=== PATIENT | male | born 1990 | race Caucasian/White ===

== ENCOUNTER 2020-12-09 00:28 | Emergency (ER) | payer SELFPAY ==
--- NOTE | 2020-12-09 00:30 | EDM.PDOC ---
ED HPI GENERAL MEDICAL PROBLEM - General Stated Complaint: HEADACHE AND SWOLLEN LEGS Time Seen by Provider: 12/09/20 00:29 - History of Present Illness INITIAL COMMENTS - FREE TEXT/NARRATIVE: History of present illness: [] Review of systems: As per history of present illness and below otherwise all systems reviewed and negative. Past medical history: As per history of present illness and as reviewed below otherwise noncontributory. Patient has a headache for 3 days it is getting worse tonight and its unbearable when he stands up and moves around. The patient also has swelling of his legs which is started at the foot and ankle with pain in the foot and ankle and gradually coming up to the thigh. The patient also has a rash that is not pruritic and is red maculopapular and over the pretibial surface but now over the trunk and also on the forearms and arms. The patient does not think he is febrile. He does not have a cough. He says if he does cough it hurts his head. 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 He does not think he is exposed to COVID-19. He lives in [place] with a but he is here staying in a hotel while he works on his home. The onset of the symptoms he has decreased urine output and has a little bit of burning when he tries. And is extremely dark. Surgical history: As per history of present illness and as reviewed below otherwise noncontribut ory. Social history: No reported history of drug or alcohol abuse. Family history: As per history of present illness and as reviewed below otherwise noncontributory. Physical exam: Constitutional - well developed, well-nourished and in no acute distress HEENT -neck supple. Brudzinski sign negative. Tender neck muscles in the posterior neck. Normocephalic, no evidence of trauma - external nose and mouth normal - no mass in neck and no JVD - mucosae moist EYES - full EOM, PERRL, no icterus - no evidence of inflammation, injection, or drainage Respiratory - no respiratory distress, equal bilateral expansion, lungs clear to auscultation and no abnormal lung sounds Cardiovascular - Regular Rhythm with S1 and S2 appreciated and no murmur, gallop or rub. GI - abdomen soft without distension or organomegaly - normal bowel sounds - no guard or rebound Musculoskeletal tender anterior anterior pretibial surfaces of his legs with no pitting edema. No gross deformity of long bones or joints - no tenderness, swelling or edema Neurologic - Alert and oriented times four - CN II-XII grossly intact - motor sensory and coordination symmetrically normal Psychiatric - appropriate mood and affect with normal thought content Hematologic - No petechiae or purpura - mucosa appropriate color and sclera not pale - normal nail bed color and refill Integument -Virgilio rash consisting of large macules several millimeters at times confluent over the upper extremities lower extremities and trunk. No pustules and no petechiae. No evidence of trauma - normal turgor Diagnostics: [] Therapeutics: [] Impression: [] Plan: [] Definitive disposition and diagnosis as appropriate pending reevaluation and review of above. Head Pain Score (Numeric/FACES): 5 - Related Data Allergies Allergy/AdvReac Type Severity Reaction Status Date / Time No Known Allergies Allergy Verified 12/09/20 00:32 Home Meds: Home Meds predniSONE [Prednisone] 60 mg PO DAILY 6 Days #18 tablet 12/09/20 [Rx] ED ROS GENERAL - Review of Systems Review Of Systems: Comprehensive ROS is negative, except as noted in HPI. ED EXAM, GENERAL - Physical Exam Exam: See Below Free Text/Narrative:: My physical exam is in the HPI. #1 Interpretation EKG Interpretation Comments: EKG taken at 00 30 hours sinus tachycardia with a heart rate of 100. CT 135 and QT 439. QRS axis 45. Normal QRS. Normal ST and T. No prior for comparison. Impression normal EKG Course - Vital Signs Text/Narrative:: 01 10 the patient has not improved much. Plan treat as possible allergy. Follow-up with primary care. Since he is in a hotel he needs to inspect his sheets carefully make sure that there is no bed bugs or nits. Last Recorded V/S: Last Vital Signs Temp 37.0 C 12/09/20 00:32 Pulse 95 12/09/20 01:40 Resp 17 12/09/20 01:40 BP 144/81 H 12/09/20 01:40 Pulse Ox 100 12/09/20 01:40 - Orders/Labs/Meds Orders: Active Orders 24 hr Category Date Time Status Sodium Chloride 0.9% [Normal Saline] 1,000 ml Med 12/09/20 02:05 Active IV .Bolus Sodium Chloride 0.9% [Saline Flush] Med 12/09/20 00:41 Active 10 ml FLUSH ASDIRECTED PRN Sodium Chloride 0.9% [Saline Flush] Med 12/09/20 00:41 Active 2.5 ml FLUSH ASDIRECTED PRN Saline Lock Insert [OM.PC] Stat Oth 12/09/20 00:41 Ordered Medication Orders Sodium Chloride (Normal Saline) 1,000 mls @ 999 mls/hr IV .Bolus ONE Stop: 12/09/20 03:05 Last Admin: 12/09/20 02:06 Dose: 999 mls/hr Documented by: JESUS Sodium Chloride (Saline Flush) 10 ml FLUSH ASDIRECTED PRN PRN Reason: Keep Vein Open Last Admin: 12/09/20 00:48 Dose: 10 ml Documented by: JESUS Sodium Chloride (Saline Flush) 2.5 ml FLUSH ASDIRECTED PRN PRN Reason: Keep Vein Open Last Admin: 12/09/20 00:48 Dose: 2.5 ml Documented by: JESUS Labs: Laboratory Tests 12/09/20 12/09/20 12/09/20 Range/Units 00:40 00:40 01:10 WBC 8.48 (4.0-11.0) K/uL RBC 4.96 (4.50-5.90) M/uL Hgb 14.2 (13.0-17.0) g/dL Hct 40.8 (38.0-50.0) % MCV 82.3 (80.0-98.0) fL MCH 28.6 (27.0-32.0) pg MCHC 34.8 (31.0-37.0) g/dL RDW Std Deviation 38.1 (28.0-62.0) fl RDW Coeff of Keisha 13 (11.0-15.0) % Plt Count 203 (150-400) K/uL MPV 9.50 (7.40-12.00) fL Neut % (Auto) 69.4 (48.0-80.0) % Lymph % (Auto) 17.3 (16.0-40.0) % Day % (Auto) 12.4 (0.0-15.0) % Eos % (Auto) 0.8 (0.0-7.0) % Baso % (Auto) 0.1 (0.0-1.5) % Neut # (Auto) 5.9 H (1.4-5.7) K/uL Lymph # (Auto) 1.5 (0.6-2.4) K/uL Day # (Auto) 1.1 H (0.0-0.8) K/uL Eos # (Auto) 0.1 (0.0-0.7) K/uL Baso # (Auto) 0.0 (0.0-0.1) K/uL Sodium 137 (136-148) mmol/L Potassium 4.6 (3.5-5.1) mmol/L Chloride 102 (98-107) mmol/L Carbon Dioxide 28.8 (21.0-32.0) mmol/L BUN 13 (7.0-18.0) mg/dL Creatinine 0.9 (0.8-1.3) mg/dL Est Cr Clr Drug Dosing 165.93 mL/min Estimated GFR (MDRD) > 60.0 ml/min Glucose 116 H (74-106) mg/dL Calcium 9.1 (8.5-10.1) mg/dL Total Bilirubin 0.5 (0.2-1.0) mg/dL AST 26 (15-37) IU/L ALT 22 (14-63) IU/L Alkaline Phosphatase 97 (46-116) U/L Total Protein 7.1 (6.4-8.2) g/dL Albumin 3.5 (3.4-5.0) g/dL Globulin 3.6 (2.6-4.0) g/dL Albumin/Globulin Ratio 1.0 (0.9-1.6) Urine Color Urine Appearance Urine pH (5.0-8.0) Ur Specific [place] (1.001-1.035) Urine Protein (NEGATIVE) mg/dL Urine Glucose (UA) (NEGATIVE) mg/dL Urine Ketones (NEGATIVE) mg/dL Urine Occult Blood (NEGATIVE) Urine Nitrite (NEGATIVE) Urine Bilirubin (NEGATIVE) Urine Urobilinogen (<2.0) EU/dL Ur Leukocyte Esterase (NEGATIVE) Influenza Type A RNA NEGATIVE (NEGATIVE) Influenza Type B RNA NEGATIVE (NEGATIVE) SARS-CoV-2 RNA (GENE) NEGATIVE (NEGATIVE) 01/20/21 Range/Units 02:10 WBC (4.0-11.0) K/uL RBC (4.50-5.90) M/uL Hgb (13.0-17.0) g/dL Hct (38.0-50.0) % MCV (80.0-98.0) fL MCH (27.0-32.0) pg MCHC (31.0-37.0) g/dL RDW Std Deviation (28.0-62.0) fl RDW Coeff of Keisha (11.0-15.0) % Plt Count (150-400) K/uL MPV (7.40-12.00) fL Neut % (Auto) (48.0-80.0) % Lymph % (Auto) (16.0-40.0) % Day % (Auto) (0.0-15.0) % Eos % (Auto) (0.0-7.0) % Baso % (Auto) (0.0-1.5) % Neut # (Auto) (1.4-5.7) K/uL Lymph # (Auto) (0.6-2.4) K/uL Day # (Auto) (0.0-0.8) K/uL Eos # (Auto) (0.0-0.7) K/uL Baso # (Auto) (0.0-0.1) K/uL Sodium (136-148) mmol/L Potassium (3.5-5.1) mmol/L Chloride (98-107) mmol/L Carbon Dioxide (21.0-32.0) mmol/L BUN (7.0-18.0) mg/dL Creatinine (0.8-1.3) mg/dL Est Cr Clr Drug Dosing mL/min Estimated GFR (MDRD) ml/min Glucose (74-106) mg/dL Calcium (8.5-10.1) mg/dL Total Bilirubin (0.2-1.0) mg/dL AST (15-37) IU/L ALT (14-63) IU/L Alkaline Phosphatase (46-116) U/L Total Protein (6.4-8.2) g/dL Albumin (3.4-5.0) g/dL Globulin (2.6-4.0) g/dL Albumin/Globulin Ratio (0.9-1.6) Urine Color YELLOW Urine Appearance CLEAR Urine pH 8.0 (5.0-8.0) Ur Specific [place] 1.020 (1.001-1.035) Urine Protein NEGATIVE (NEGATIVE) mg/dL Urine Glucose (UA) NEGATIVE (NEGATIVE) mg/dL Urine Ketones NEGATIVE (NEGATIVE) mg/dL Urine Occult Blood NEGATIVE (NEGATIVE) Urine Nitrite NEGATIVE (NEGATIVE) Urine Bilirubin NEGATIVE (NEGATIVE) Urine Urobilinogen 0.2 (<2.0) EU/dL Ur Leukocyte Esterase NEGATIVE (NEGATIVE) Influenza Type A RNA (NEGATIVE) Influenza Type B RNA (NEGATIVE) SARS-CoV-2 RNA (GENE) (NEGATIVE) Meds: Medications Generic Name Dose Route Start Last Admin Trade Name Freq PRN Reason Stop Dose Admin Sodium Chloride 1,000 mls @ 999 mls/hr 12/09/20 02:05 12/09/20 02:06 Normal Saline IV 12/09/20 03:05 999 mls/hr .Bolus ONE Administration Sodium Chloride 10 ml 12/09/20 00:41 12/09/20 00:48 Saline Flush FLUSH 10 ml ASDIRECTED PRN Administration Keep Vein Open Sodium Chloride 2.5 ml 12/09/20 00:41 12/09/20 00:48 Saline Flush FLUSH 2.5 ml ASDIRECTED PRN Administration Keep Vein Open Discontinued Medications Generic Name Dose Route Start Last Admin Trade Name Vinnyq PRN Reason Stop Dose Admin Hydrocodone Bitart/Acetaminophen 1 tab 12/09/20 01:26 12/09/20 01:34 [place] 325-10 Mg PO 12/09/20 01:27 1 tab ONETIME ONE Administration Cyclobenzaprine HCl 10 mg 12/09/20 00:42 12/09/20 00:46 Flexeril PO 12/09/20 00:43 10 mg ONETIME ONE Administration Diphenhydramine HCl 50 mg 12/09/20 00:42 12/09/20 00:47 Benadryl IVPUSH 12/09/20 00:43 50 mg ONETIME ONE Administration Ketorolac Tromethamine 15 mg 12/09/20 00:42 12/09/20 00:46 Toradol IVPUSH 12/09/20 00:43 15 mg ONETIME ONE Administration Prednisone 60 mg 12/09/20 02:19 Prednisone PO 12/09/20 02:20 ONETIME ONE Departure - Departure Time of Disposition: 02:24 Disposition: Home, Self-Care 01 Condition: Good Clinical Impression: Headache, Rash - Discharge Information Prescriptions: predniSONE [Prednisone] 60 mg PO DAILY 6 Days #18 tablet Instructions: General Headache Without Cause, [id number], Hives, [id number] Additional Instructions: Use Benadryl 50 mg 3 times a day. 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 Make an appointment to come and see the doctors at primary care clinic so they can investigate further why he had this rash and headache. Check your hotel room sheets carefully for insects or nits. [facility] - [facility] [address] [place] [address] [facility] [address] [place] [id number] The following information is given to patients seen in the emergency department who are being discharged to home. This information is to outline your options for follow-up care. We provide all patients seen in our emergency department with a follow-up referral. The need for follow-up, as well as the timing and circumstances, are variable depending upon the specifics of your emergency department visit. If you don't have a primary care physician on staff, we will provide you with a referral. We always advise you to contact your personal physician following an emergency department visit to inform them of the circumstance of the visit and for follow-up with them and/or the need for any referrals to a consulting specialist. The emergency department will also refer you to a specialist when appropriate. This referral assures that you have the opportunity for follow-up care with a specialist. All of these measure are taken in an effort to provide you with optimal care, which includes your follow-up. Under all circumstances we always encourage you to contact your private physician who remains a resource for coordinating your care. When calling for follow-up care, please make the office aware that this follow-up is from your recent emergency room visit. If for any reason you are refused follow-up, please contact the [facility] Emergency Department at and asked to speak to the emergency department charge nurse. Sepsis Event Note (ED) - Focused Exam Vital Signs: Vital Signs Temp Pulse Resp BP Pulse Ox 12/09/20 01:40 95 17 144/81 H 100 12/09/20 00:32 37.0 C 105 H 20 165/93 H 99 - My Orders Last 24 Hours: My Active Orders 12/09/20 00:41 Sodium Chloride 0.9% [Saline Flush] 10 ml FLUSH ASDIRECTED PRN Sodium Chloride 0.9% [Saline Flush] 2.5 ml FLUSH ASDIRECTED PRN Saline Lock Insert [OM.PC] Stat 12/09/20 02:05 Sodium Chloride 0.9% [Normal Saline] 1,000 ml IV .Bolus - Assessment/Plan Last 24 Hours: My Active Orders 12/09/20 00:41 Sodium Chloride 0.9% [Saline Flush] 10 ml FLUSH ASDIRECTED PRN Sodium Chloride 0.9% [Saline Flush] 2.5 ml FLUSH ASDIRECTED PRN Saline Lock Insert [OM.PC] Stat 12/09/20 02:05 Sodium Chloride 0.9% [Normal Saline] 1,000 ml IV .Bolus
[2020-12-09] MEDS ORDERED: Sodium Chloride 0.9% 10 ML Syringe FLUSH PRN (00:41)
[2020-12-09] MEDS ORDERED: Sodium Chloride 0.9% 2.5 ML Syringe FLUSH PRN (00:41)
[2020-12-09] MEDS ORDERED: Ketorolac 30 MG/ML SDV IVPUSH ONE (00:42)
[2020-12-09] MEDS ORDERED: Cyclobenzaprine 10 MG Tab PO ONE (00:42)
[2020-12-09] MEDS ORDERED: diphenhydrAMINE 50 MG/ML SDV IVPUSH ONE (00:42)
[2020-12-09 01:07] LABS: BLOOD UREA NITROGEN,BUN 13 mg/dL (7.0-18.0); CARBON DIOXIDE,CO2 28.8 mmol/L (21.0-32.0); CHLORIDE,CL 102 mmol/L (98-107); GLUCOSE RANDOM 116 mg/dL (74-106); POTASSIUM,K 4.6 mmol/L (3.5-5.1); SODIUM,NA 137 mmol/L (136-148)
[2020-12-09] MEDS ORDERED: Acetaminophen/HYDROcodone 325-10 MG Tab PO ONE (01:26)
--- NOTE | 2020-12-09 01:43 | CT ---
INDICATION: Headache TECHNIQUE: CT head without contrast. COMPARISON: None available FINDINGS: The ventricles and sulci are within normal limits. There is no mass effect or midline shift. There is no loss of lanier-white differentiation. There is no evidence of an acute intracranial hemorrhage. No acute calvarial fracture is seen. The visualized paranasal sinuses and mastoid air cells are clear. The visualized orbits are within normal limits. The adenoids are prominent. IMPRESSION: No evidence of an acute intracranial hemorrhage, mass effect or loss of lanier-white differentiation. Please note that all CT scans at this facility use dose modulation, iterative reconstruction, and/or weight-based dosing when appropriate to reduce radiation dose to as low as reasonably achievable. Dictated by Cody Tafoya MD @ Dec 09 2020 1:37AM Signed by Dr. Cody Tafoya @ Dec 09 2020 1:42AM
[2020-12-09 01:58] LABS: CORONAVIRUS COVID-19 NAA NEGATIVE (NEGATIVE); INFLUENZA A NAA NEGATIVE (NEGATIVE); INFLUENZA B NAA NEGATIVE (NEGATIVE)
[2020-12-09] MEDS ORDERED: Sodium Chloride 0.9% 1,000 ML IV ONE (02:05)
[2020-12-09] MEDS ORDERED: predniSONE 20 MG Tab PO ONE (02:19)
[2020-12-09] MEDS ORDERED: HYDROmorphone 1 MG/ML Syringe IVPUSH ONE (03:11)
== END 2020-12-09 04:54 | disposition home or self-care (01) ==
LOC: MW.ED 00:28
DX: R51.9 Headache, unspecified (principal); R21 Rash and other nonspecific skin eruption; Z20.822 Contact with and (suspected) exposure to COVID-19
CPT/HCPCS: 0240U; 36415; 62270; 70450; 80053; 81003; 82945; 84157; 85025; 86788; 86789; 87070; 87205; 87529; 89050; 93005; 96374; 96375; 99284; A9270; J1170; J1200; J1885; J7030